=== PATIENT | male | born 1940 | race Caucasian/White ===

== ENCOUNTER 2018-11-17 16:32 | Emergency (ER) | payer OTHER ==
[~2018-11-17] VITALS: Ht 162.6 cm; Wt 44.5 kg
[2018-11-17] MEDS ORDERED: COZAAR25 MG (17:18)
[2018-11-17] MEDS ORDERED: ASA81 MG (17:18)
[2018-11-17] MEDS ORDERED: OMEPRAZOLE20 MG (17:18)
[2018-11-17] MEDS ORDERED: ATORVASTATIN CA20 MG (17:19)
[2018-11-17] MEDS ORDERED: EZETIMIBE10 MG (17:19)
[2018-11-17] MEDS ORDERED: MECLIZINE HCL12.5 MG (17:19)
[2018-11-17] MEDS ORDERED: NORVASC2.5 MG (17:21)
== END 2018-11-17 21:21 | disposition home or self-care (01) ==
LOC: ER 16:32
DX: G89.11 Acute pain due to trauma (principal); M25.552 Pain in left hip; M79.652 Pain in left thigh; R53.1 Weakness